=== PATIENT | female | born 1990 | race Two or more races ===

== ENCOUNTER 2025-04-01 12:11 | Emergency (ER) | payer OTHER ==
[~2025-04-01] VITALS: Ht 149.9 cm; Wt 48.2 kg
[2025-04-01 12:22] VITALS: BP_DIAS 81
--- NOTE | 2025-04-01 13:07 | ED.PDOC ---
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 She states she has a proximally 5 weeks status post delivery of the baby. She states she was doing okay but 3 days ago she began to have heavy vaginal bleeding with some clots she is going through 1 pad an hour. She denies any dizziness or shortness of breath. She states today however the bleeding has slowed down a lot and since morning to 3:00 p.m. she has only gone through 1 pad. She does have an OBGYN for which she has not appointment with next Thursday. Denies any other symptoms and otherwise feels well. Patient had . Chief Complaint: Vaginal Bleed Time Seen by MD: 14:56 Reviewed Notes: Nurses Notes, Medications, Allergies Allergies: Coded Allergies: NO KNOWN ALLERGIES (Unverified , 04/01/25) Information Source: Patient Mode of Arrival: Ambulatory Timing: Days (3) Vaginal Discharge: None Vaginal Lesions: None Bleeding Quality: Bright Red Vaginal Mass: None Associated Signs and Symptoms: Vaginal Bleeding Past Medical History PAST MEDICAL HISTORY: Denies Surgical History: Denies all surgeries VEHICLE CARE SPECIALIST History: No Pertinent VEHICLE CARE SPECIALIST History Family History Family History: Reviewed,noncontributory to illness Social History Smoker: Non-Smoker Alcohol: Denies ETOH Use Drugs: Denies Drug Use Lives In: Home Constitutional: denies: chills, diaphoresis, fatigue, fever, malaise, sweats, w eakness, others EENTM: denies: blurred vision, double vision, ear bleeding, ear discharge, ear drainage, ear pain, ear ringing, eye pain, eye redness, hearing loss, mouth pain, mouth swelling, nasal discharge, nose bleeding, nose congestion, nose pain, photophobia, tearing, throat pain, throat swelling, voice changes, others Respiratory: denies: cough, hemoptysis, orthopnea, SOB at rest, shortness of breath, SOB with excertion, stridor, wheezing, others Cardiovascular: denies: chest pain, dizzy spells, diaphoresis, Dyspnea on exertion, edema, irregular heart beat, left arm pain, lightheadedness, palpitations, PND, syncope, others Gastrointestinal: denies: abdomen distended, abdominal pain, blood streaked bowels, constipated, diarrhea, dysphagia, difficulty swallowing, hematemesis, melena, nausea, poor appetite, poor fluid intake, rectal bleeding, rectal pain, vomiting, others Genitourinary: reports: abnormal vagina bleeding; denies: burning, dyspareunia, dysuria, flank pain, frequency, hematuria, incontinence, pain, , vagina discharge, urgency, others Neurological: denies: dizziness, fainting, headache, left sided numbness, left sided weakness, numbness, paresthesia, pre-existing deficit, right sided numbness, right sided weakness, seizure, speech problems, tingling, tremors, weakness, others Musculoskeletal: denies: back pain, gout, joint pain, joint swelling, muscle pain, muscle stiffness, neck pain, others Integumetry: denies: bruises, change in color, change in hair/nails, dryness, laceration, lesions, lumps, rash, wounds, others Allergic/Immunocompromised: denies: Difficulty Healing, Frequent Infections, Hives, Itching, others Hematologic/Lymphatic: denies: anemia, blood clots, easy bleeding, easy bruising, swollen glands, others Endocrine: denies: excessive hunger, excessive sweating, excessive thirst, excessive urination, flushing, intolerance to cold, intolerance to heat, unexplained weight gain, unexplained weight loss, others Psychiatric: denies: anxiety, bipolar disorder, depression, hopeless, panic disorder, schizophrenia, sleepless, suicidal, others All Other Systems: Reviewed and Negative Physical Exam General Appearance: No Apparent Distress, Normal HEENT: Normal ENT Inspection, Pharynx Normal, TMs Normal Neck: Full Range of Motion, Non-Tender, Normal, Normal Inspection Respiratory: Chest Non-Tender, Lungs Clear, No Accessory Muscle Use, No Res piratory Distress, Normal Breath Sounds Cardiovascular: No Edema, No JVD, No Murmur, No Gallop, Normal Peripheral Pulses, Regular Rate/Rhythm Breast Exam: Deferred Gastrointestinal: No Organomegaly, Non Tender, No Pulsatile Mass, Normal Bowel Sounds, Soft Genitalia: Deferred Pelvic: Deferred Rectal: Deferred Extremities: No calf tenderness, Normal capillary refill, Normal inspection, Normal range of motion, Non-tender, No pedal edema Musculoskeletal : Apperance: Normal Neurologic: Alert, 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 Was a procedure done?: No Differential Diagnosis (VEHICLE CARE SPECIALIST) Vaginal Bleeding: Blood Loss Anemia, Cervicitis, Ectopic , Hormonal, Menorrhagia, Menometrorrhagia, Menstrual Bleeding Comments Endometritis, retained products of conception X-Ray, Labs, Meds, VS Vital Signs Date Time Temp Pulse Resp B/P (MAP) Pulse Ox O2 Delivery O2 Flow Rate FiO2 04/01/25 12:22 98.2 76 18 143/81 99 98.2 Lab Test 04/01/25 13:17 Range/Units White Blood Count 5.7 4.4-10.8 10^3/uL Red Blood Count 3.64 L 4.0-5.20 10^6/uL Hemoglobin 10.6 L 12.2-16.2 g/dL Hematocrit 31.8 L 36.0-46.0 % Mean Corpuscular Volume 87.5 80.0-100.0 fL Mean Corpuscular Hemoglobin 29.0 28.0-32.0 pg Mean Corpuscular Hemoglobin Concent 33.2 32.0-36.0 g/dL Red Cell Distribution Width 15.2 H 11.8-14.3 % Platelet Count 209 140-450 10^3/uL Mean Platelet Volume 10.4 6.9-10.8 fL Neutrophils (%) (Auto) 48.9 37.0-80.0 % Lymphocytes (%) (Auto) 43.7 10.0-50.0 % Monocytes (%) (Auto) 5.1 0.0-12.0 % Eosinophils (%) (Auto) 1.8 0.0-7.0 % Basophils (%) (Auto) 0.5 0.0-2.0 % Neutrophils # (Auto) 2.8 1.6-8.6 10 ^3/uL Lymphocytes # (Auto) 2.5 0.4-5.4 10 ^3/uL Monocytes # (Auto) 0.3 0-1.3 10 ^3/uL Eosinophils # (Auto) 0.1 0-0.8 10 ^3/uL Basophils # (Auto) 0 0-0.2 10 ^3/uL Nucleated Red Blood Cells 0.0 % Sodium Level 145 136-145 mmol/L Potassium Level 3.7 3.5-5.1 mmol/L Chloride Level 108 H 98-107 mmol/L Carbon Dioxide Level 27 20-31 mmol/L Anion Gap 10 5-15 Blood Urea Nitrogen 9 9-23 mg/dL Creatinine 0.65 0.550-1.02 mg/dL Glomerular Filtration Rate Calc 116 >90 mL/min BUN/Creatinine Ratio 13.8 10.0-20.0 Serum Glucose 86 74-106 mg/dL Calcium Level 9.3 8.7-10.4 mg/dL 35-year-old female presents here with vaginal bleeding. She is 5 weeks status post delivery of the baby. She states 4 days ago she began to have heavy bleeding however since today it has slowed down. She has only gone through 1 pad all day. At this time she has no abdominal pain no vaginal discharge. Abdomen is soft and nontender. Doubt endometritis. I suspect she likely had some retained products of conception which have likely passed now. CBC has been done with a normal hemoglobin of 10.6. Blood work otherwise unremarkable. Including a normal CMP. This time I have discharged the patient home. She has a follow up appointment with her OBGYN this coming Thursday. Advised her to return if her symptoms worsen or persist. Time of 1ST Reevaluation: 15:06 Reevaluation 1ST: Improved Patient Education/Counseling: Diagnosis, Treatment, Prognosis Family Education/Counseling: No Family Present Departure 1 Departure Time of Disposition: 15:09 Impression: Primary Impression: Vaginal bleeding Disposition: 01 HOME / SELF CARE / HOMELESS Condition: Stable Additional Instructions: Follow up with your OBGYN and return to the ER if symptoms worsen or persist Discharged With: Self Critical Care Note Critical Care Time?: No Stability Stability form required: No I personally scribed for RICHARD HARRISON MD ([email or web address]) on 04/01/25 at 13:07. Electronically submitted by Viola Robledo ([facility]). I personally scribed for RICHARD HARRISON MD ([email or web address]) on 04/01/25 at 15:05. Electronically submitted by Viola Robledo ([facility]). RICHARD HARRISON MD Apr 01, 2025 13:07
[2025-04-01 13:42] LABS: Hematocrit 31.8 % (36.0-46.0); Hemoglobin 10.6 g/dL (12.2-16.2); Mean Corpuscular Hemoglobin 29.0 pg (28.0-32.0); Mean Corpuscular Volume 87.5 fL (80.0-100.0); Nucleated Red Blood Cells % 0.0 %
[2025-04-01 13:48] LABS: Potassium 3.7 mmol/L (3.5-5.1); Sodium 145 mmol/L (136-145)
[2025-04-01 13:49] LABS: Anion Gap 10 (5-15); Calcium 9.3 mg/dL (8.7-10.4); Carbon Dioxide 27 mmol/L (20-31)
[2025-04-01 13:53] LABS: Chloride 108 mmol/L (98-107)
[2025-04-01 13:54] LABS: BUN/Creatinine Ratio 13.8 (10.0-20.0); Glucose 86 mg/dL (74-106)
[2025-04-01 14:09] LABS: Blood Urea Nitrogen 9 mg/dL (9-23)
[2025-04-01 18:32] VITALS: BP_SYST 121; PULSE 77; RESP 20; TEMP 98.1; O2SAT 96
== END 2025-04-01 18:40 | disposition home or self-care (01) ==
LOC: ER 12:11
DX: O20.9 Hemorrhage in early pregnancy, unspecified (principal); Z3A.01 Less than 8 weeks gestation of pregnancy
CPT/HCPCS: 36415; 80048; 85025; 86850; 86900; 86901